=== PATIENT | female | born 1955 | race Caucasian/White ===

== ENCOUNTER → 2020-06-09 | Outpatient (CLI) | payer MEDICARE ==
[~2020-06-09] MED LIST: BIOT5TAB PO; CA C1TAB39 PO; CETI10CA PO; CHOL10003 PO; CYAN1TAB29 PO; FAMO-79 PO; FIBER WELL PO; FOLI1TAB47 PO; GLUC-121 PO; MELA1TAB8 PO; PANT500T PO; TURM500C4 PO; [UNRECOGNIZED DRUG - CODE] NS
== END | disposition home or self-care (01) ==
LOC: STAR 14:31
PROVIDERS: ATTEND Internal Medicine Geriatric Medicine
DX: Z01.818 Encounter for other preprocedural examination (principal); K31.89 Other diseases of stomach and duodenum
CPT/HCPCS: 93005

== ENCOUNTER 2020-06-23 08:43 | Day surgery (SDC) | payer MEDICARE ==
[~2020-06-23] VITALS: Ht 160 cm; Wt 52.0 kg
[2020-06-23] MEDS ORDERED: CHLORHEXIDINE 15 ML UDC MM STA (08:54)
[2020-06-23] MEDS ORDERED: LACTATED RINGERS 1,000 ML IV SCH (09:00)
[2020-06-23] MEDS ORDERED: LABETALOL 5MG/ML, 20ML IV PRN (11:00)
[2020-06-23] MEDS ORDERED: ONDANSETRON 2MG/ML, 2ML IVPush PRN (11:00)
[2020-06-23] MEDS ORDERED: FENTANYL PF 100 MCG/2ML IV PRN (11:00)
[2020-06-23] MEDS ORDERED: OXYcodone 5 MG/5 ML ORAL.SOL UDC PO PRN (11:00)
[2020-06-23] MEDS ORDERED: MEPERIDINE/PF 25MG/0.5ML IVPush PRN (11:00)
[2020-06-23] MEDS ORDERED: FENTANYL PF 250 MCG/5ML ONE (11:04)
[2020-06-23] MEDS ORDERED: MIDAZOLAM 1 MG/ML, 2ML ONE (11:04)
[2020-06-23] MEDS ORDERED: PROPOFOL 10 MG/ML, 20ML ONE ×4 (11:05)
[2020-06-23] MEDS ORDERED: FENTANYL PF 100 MCG/2ML ONE (11:05)
[2020-06-23] MEDS ORDERED: GLUCAGON 1 MG ONE (12:55)
== END 2020-06-23 14:00 | disposition home or self-care (01) ==
LOC: OUT 08:43
PROVIDERS: ATTEND Internal Medicine Geriatric Medicine
DX: K31.89 Other diseases of stomach and duodenum (principal); D13.2 Benign neoplasm of duodenum; Z72.89 Other problems related to lifestyle; Z79.899 Other long term (current) drug therapy; Z82.49 Family history of ischemic heart disease and other diseases of the circulatory system; K21.9 Gastro-esophageal reflux disease without esophagitis; Z98.890 Other specified postprocedural states; Z80.0 Family history of malignant neoplasm of digestive organs
CPT/HCPCS: 43254; 43259; 88305; J1610; J2250; J2704; J3010; J7120

== ENCOUNTER → 2021-08-18 | Outpatient (CLI) | payer MEDICARE | END | disposition home or self-care (01) | LOC: RAD 10:25 | PROVIDERS: ATTEND Nurse Practitioner Women's Health | DX: N95.0 Postmenopausal bleeding (principal) | CPT/HCPCS: 76830 ==